=== PATIENT | male | born 1990 | race Caucasian/White ===

== ENCOUNTER 2024-11-10 23:50 | Emergency (ER) | payer OTHER ==
[~2024-11-10] VITALS: Ht 182.9 cm; Wt 99.6 kg
[2024-11-11] MEDS: ACETAMINOPHEN 325 MG TAB PO ONE (06:33)
[2024-11-11 09:13] VITALS: BP 120/72; TEMP 96.2; O2SAT 96
== END 2024-11-11 09:16 | disposition home or self-care (01) ==
LOC: M ED 23:50
DX: S06.0X0A Concussion without loss of consciousness, initial encounter (principal); S13.4XXA Sprain of ligaments of cervical spine, initial encounter; W00.0XXA Fall on same level due to ice and snow, initial encounter; Y92.89 Other specified places as the place of occurrence of the external cause; Y93.89 Activity, other specified; Y99.9 Unspecified external cause status